=== PATIENT | male | born 1980 | race Caucasian/White ===

== ENCOUNTER → 2016-09-13 | Outpatient (CLI) | payer BC ==
--- NOTE | 2016-09-16 10:33 | CR ---
EXAM DATE: 09/13/16 PATIENT'S AGE: 36 Patient: DB VILLALOBOS Facility: [place], [place] Site . Site : 1980 Study: XRay Knee [id number]/10/2017 9:06:08 AM Ordering Physician: Keily Nguyễn Final Report: INDICATION: pain in right knee TECHNIQUE: Knee radiograph 1 view right COMPARISON: None FINDINGS: Bones: Alignment is normal. No acute fractures or aggressive bone lesions identified. Joint spaces: Unremarkable. No knee effusion is seen on the lateral exam. Soft tissues: Unremarkable. No radiopaque foreign bodies are seen. IMPRESSION: 1. No acute osseous injuries are noted but complete radiographic assessment will require at least another orthogonal view. Dictated by: Chalino Mandel MD @ 09/15/2016 01:15:06 (Electronic Signature) Report Signed by Proxy and Original Signed Document filed in the Medical Record. [email or web address]
== END ==
LOC: MW.CHORTHO 07:52
PROVIDERS: ATTEND Physician Assistant
DX: M25.561 Pain in right knee (principal)
CPT/HCPCS: 73560-26-RT; 73560-RT

== ENCOUNTER 2016-10-17 10:30 | Day surgery (SDC) | payer BC ==
[~2016-10-17 10:30] MED LIST: Acetaminophen/HYDROcodone 325-5 MG Tab PO PRN; Lactated Ringers 1,000 ML IV SCH; ceFAZolin 2 GM in Premix Bag 1 BAG IV SCH
[2016-10-17] MEDS ORDERED: Lidocaine 1% 50 ML MDV ONE (10:51)
--- NOTE | 2016-10-17 10:59 | PCM.PREANE ---
Preanesthetic Assessment - Anesthesia/Transfusion/Family Hx Anesthesia History: Prior Anesthesia Without Reaction Family History of Anesthesia Reaction: No Transfusion History: No Prior Transfusion(s) - Review of Systems General: No Symptoms Pulmonary: No Symptoms Cardiovascular: No Symptoms Gastrointestinal: No symptoms Neurological: No Symptoms Other: Reports: None - Physical Assessment NPO Status Date: 10/16/16 O2 Sat by Pulse Oximetry: 94 Respiratory Rate: 16 Vital Signs: Last Vital Signs Temp 36.5 C 10/17/16 10:49 Pulse 60 10/17/16 10:49 Resp 16 10/17/16 10:49 BP 127/70 10/17/16 10:49 Pulse Ox 94 L 10/17/16 10:49 Height: 1.78 m Weight: 99.79 kg ASA Class: 1 Mental Status: Alert & Oriented x3 Airway Class: Mallampati = 1 Dentition: Reports: Normal Dentition ROM/Head Extension: Full Lungs: Clear to auscultation, Normal respiratory effort Cardiovascular: Regular Rate, Regular Rhythm - Allergies Allergies/Adverse Reactions: Allergies Allergy/AdvReac Type Severity Reaction Status Date / Time No Known Allergies Allergy Verified 10/15/16 12:13 - Anesthesia Plan Pre-Op Medication Ordered: None - Acknowledgements Anesthesia Type Planned: General Anesthesia Pt an Appropriate Candidate for the Planned Anesthesia: Yes Alternatives and Risks of Anesthesia Discussed w Pt/Guardian: Yes Pt/Guardian Understands and Agrees with Anesthesia Plan: Yes Additional Comments: GA LMA PreAnesthesia Questionnaire Gastrointestinal History: Reports: None Neurological History: Reports: Concussion Endocrine/Metabolic History: Reports: Obesity/BMI 30+ - Past Surgical History Head Surgeries/Procedures: Reports: None GI Surgical History: Reports: Hernia, inguinal Other GI Surgeries/Procedures: inguinal hernia repair x2 - SUBSTANCE USE Smoking Status *Q: Former Smoker Tobacco Use Within Last Twelve Months: Smokeless Tobacco Recreational Drug Use History: No - HOME MEDS Home Medications: Home Meds Acetaminophen 2 tab PO ASDIRECTED PRN 10/15/16 [History] - CURRENT (IN HOUSE) MEDS Current Meds: Current Medications Hydrocodone Bitart/Acetaminophen ([place] 325-5 Mg) 1 - 2 tab PO Q4H PRN PRN Reason: Pain Lactated Ringer's (Ringers, Lactated) 1,000 mls @ 100 mls/hr IV ASDIRECTED LENI Last Admin: 10/17/16 10:51 Dose: 100 mls/hr Cefazolin Sodium/Dextrose 2 gm (/ Premix) 50 mls @ 100 mls/hr IV ONCALL LENI Discontinued Medications Lidocaine HCl (Xylocaine 1%) Confirm Administered Dose 50 ml .ROUTE .[facility] ONE Stop: 10/17/16 10:52
[2016-10-17] MEDS ORDERED: Ondansetron 4 MG/2 ML SDV ONE (11:16)
[2016-10-17] MEDS ORDERED: Propofol 200 MG/20 ML SDV ONE (11:16)
[2016-10-17] MEDS ORDERED: fentaNYL 250 MCG/5 ML SDV ONE (11:16)
[2016-10-17] MEDS ORDERED: Midazolam 1 MG/ML 2 ML SDV ONE (11:16)
[2016-10-17] MEDS ORDERED: Ketorolac 30 MG/ML SDV ONE (12:19)
--- NOTE | 2016-10-17 12:35 | PCM.OPNOTE ---
- General Post-Op/Procedure Note Date of Surgery/Procedure: 10/17/16 Operative Procedure(s): R knee arthroscopy with PMM Post-Op Diagnosis: R knee medial meniscus tear Anesthesia Technique: General LMA Primary Surgeon: Tigist Snyder Peanut Cleaner: Ihsan Garland in mLs: 5 Condition: Good Free Text/Narrative:: tt=17 min #[id number]
--- NOTE | 2016-10-17 13:14 | PCM.POSTAN ---
POST ANESTHESIA ASSESSMENT - MENTAL STATUS Mental Status: alert, oriented - RESPIRATORY Respiratory Status: respiratory rate WNL, airway patent - CARDIOVASCULAR CV Status: pulse rate WNL, blood pressure stable - GASTROINTESTINAL GI Status: no symptoms - POST OP HYDRATION Hydration Status: adequate & stable
--- NOTE | 2016-10-17 13:22 | PCM48HPAN ---
Post Anesthesia Note - EVALUATION WITHIN 48HRS OF ANESTHETIC Vital Signs in Normal Range: Yes Patient Participated in Evaluation: Yes Respiratory Function Stable: Yes Airway Patent: Yes Cardiovascular Function Stable: Yes Hydration Status Stable: Yes Pain Control Satisfactory: Yes Nausea and Vomiting Control Satisfactory: Yes Mental Status Recovered: Yes
[2016-10-17 14:27] VITALS: BP 108/73
--- NOTE | 2016-10-17 18:58 | OR ---
SURGEON: Tigist Snyder MD DATE OF PROCEDURE: 10/17/2016 PREOPERATIVE DIAGNOSIS: Right knee medial meniscus tear. POSTOPERATIVE DIAGNOSIS: Right knee medial meniscus tear. PROCEDURE: Right knee arthroscopy with partial medial meniscectomy. ASPHALT LAYER: Ihsan Garland PA-C. ANESTHESIA: General. ESTIMATED BLOOD LOSS: 5 mL. TOURNIQUET TIME: 17 minutes. COMPLICATIONS: None. DVT PROPHYLAXIS: Not indicated. IMPLANTS USED: None. BRIEF HISTORY: Mendel is a 36-year-old male, who has had complaint of progressive right knee pain. An MRI did show a tear of the medial meniscus. Due to his lack of response to conservative treatment, I did recommend surgical intervention. The risks and goals of the procedure were discussed with the patient and were documented preoperatively. He agreed to proceed. DESCRIPTION OF PROCEDURE: The patient was properly identified and brought to the operating room. He was transferred from the OR cart and placed on the operating table in supine position. General anesthesia was administered. After adequate anesthesia was obtained, a well-padded tourniquet was applied to the right lower extremity. The right lower extremity was then prepped in a standard fashion using ChloraPrep solution. It was then sterilely draped. A time-out was performed to ensure correct site and procedure. Preoperative antibiotics were given. The surgical site had been marked preoperatively. An Esmarch was used to exsanguinate the right lower extremity and the tourniquet was inflated to 250 mmHg. A lateral portal arthrotomy was established. Blunt trocar and cannula were introduced into the suprapatellar pouch. Camera, inflow, and outflow were assembled. No synovitis was noted. The patellofemoral joint was then visualized. The patella appeared to track centrally. There was an area of grade 2 chondromalacia along the central portion of the trochlear groove. I then extended down the lateral and medial gutters. No loose bodies were identified. I then entered the medial compartment. Immediately evident was a degenerative meniscus tear along the posterior horn. A medial portal arthrotomy was established and a blunt probe was inserted. The meniscus tear was probed and found to be unstable. Using a combination of biters and shaver, this was resected back to a stable remnant. There was a horizontal cleavage line between the superior and inferior portion of the meniscus. Both the edges were probed and found to be stable. I elected to leave the horizontal tear intact. The joint surfaces showed minor grade 1 chondromalacia only. I then entered the notch. Both the ACL and PCL were visualized and probed and found to be intact. I finally entered the lateral compartment. The lateral meniscus was probed and found to be stable. Grade 1 chondromalacia was noted along the lateral tibial plateau. No degenerative changes were noted along the lateral femoral condyle. I then re-entered the patellofemoral joint. The area of chondromalacia along the central portion of the trochlea was probed. This was found to be not full thickness. There were no loose flaps. Instruments were then removed from the knee. The portal sites were closed with 3-0 nylon. 1% lidocaine was injected along the portal tracts. Xeroform gauze was placed over the wound and a bulky dressing was applied. The tourniquet was then deflated. He was awakened from his anesthetic and transferred back to the operating room cart. He was brought to recovery room in stable condition. All needle and sponge counts were correct. RADHA / KATHY /[id number]
== END 2016-10-17 14:05 | disposition home or self-care (01) ==
LOC: MW.SDS 10:30
PROVIDERS: ATTEND Orthopaedic Surgery
PROC: 0SBC4ZZ Excision of Right Knee Joint, Percutaneous Endoscopic Approach (ICD-10-PCS; principal; 2016-10-17)
DX: M23.321 Other meniscus derangements, posterior horn of medial meniscus, right knee (principal); M94.261 Chondromalacia, right knee; E66.9 Obesity, unspecified; Z87.891 Personal history of nicotine dependence; Z98.890 Other specified postprocedural states; Z68.31 Body mass index [BMI] 31.0-31.9, adult
CPT/HCPCS: 29881; A9270; J1885; J2250; J2405; J3010; J7120; 01400; 88304; J2704

== ENCOUNTER 2021-04-26 07:07 | Observation (INO) | payer BC ==
[2021-04-26] MEDS ORDERED: Sodium Chloride 0.9% 10 ML Syringe FLUSH PRN (07:29)
[2021-04-26] MEDS ORDERED: Morphine 4 MG/ML Syringe IVPUSH ONE (07:29)
[2021-04-26] MEDS ORDERED: Sodium Chloride 0.9% 2.5 ML Syringe FLUSH PRN (07:29)
[2021-04-26] MEDS ORDERED: Ondansetron 4 MG/2 ML SDV IVPUSH ONE (07:29)
[2021-04-26] MEDS ORDERED: Sodium Chloride 0.9% 1,000 ML IV ONE (07:30)
--- NOTE | 2021-04-26 07:33 | EDM.PDOC ---
ED HPI GENERAL MEDICAL PROBLEM - General Chief Complaint: Abdominal Pain Stated Complaint: SHARP RIGHT SIDE ABDOMINAL PAIN Time Seen by Provider: 04/26/21 07:09 - History of Present Illness INITIAL COMMENTS - FREE TEXT/NARRATIVE: History of present illness: [] The patient was in his usual state of health had a sharp pain in his abdomen last night. It was in the right lower quadrant and hypogastrium. He was vague and not discretely located in any 1 point. This morning he woke up and has pain in the right lower quadrant that is severe and continues. Its worse with movement. He does not have nausea or vomiting now but he says the pain is bad and makes him feel like he is going to be nauseated. The patient has not vomited or had change in bowel or urine habits. Past medical history includes a hernia that is been done twice in the left groin including mesh implant. He says a hernia has recurred again. He also has a history of knee surgery but is otherwise in pretty good health. Last p.o. was before midnight last night. Review of systems: As per history of present illness and below otherwise all systems reviewed and negative. Past medical history: As per history of present illness and as reviewed below otherwise noncontributory. Surgical history: As per history of present illness and as reviewed below otherwise noncontributory. Social history: No reported history of drug or alcohol abuse. Family history: As per history of present illness and as reviewed below otherwise noncontributory. Physical exam: Constitutional - well developed, well-nourished and in no acute distress HEENT - normocephalic, no evidence of trauma - external nose and mouth normal - no mass in neck and no JVD - mucosae moist EYES - full EOM, PERRL, no icterus - no evidence of inflammation, injection, or drainage Respiratory - no respiratory distress, equal bilateral expansion, lungs clear to auscultation and no abnormal lung sounds Cardiovascular - Regular Rhythm with S1 and S2 appreciated and no murmur, gallop or rub. GI - abdomen soft without distension or organomegaly -exquisitely tender at McBurney's point. Guards this area diminished bowel sounds - no rebound Musculoskeletal no gross deformity of long bones or joints - no tenderness, swelling or edema Neurologic - Alert and oriented times four - CN II-XII grossly intact - motor sensory and coordination symmetrically normal Psychiatric - appropriate mood and affect with normal thought content Hematologic - No petechiae or purpura - mucosa appropriate color and sclera not pale - normal nail bed color and refill Integument - no rash or evidence of trauma - normal turgor Diagnostics: [] Therapeutics: [] Impression: [] Plan: [] Definitive disposition and diagnosis as appropriate pending reevaluation and review of above. RLQ Pain Score (Numeric/FACES): 6 - Related Data Allergies Allergy/AdvReac Type Severity Reaction Status Date / Time No Known Allergies Allergy Verified 04/26/21 07:18 Home Meds: Home Meds . [No Known Home Meds] 04/26/21 [History] Past Medical History HEENT History: Reports: None Cardiovascular History: Reports: None Respiratory History: Reports: None Gastrointestinal History: Reports: None Genitourinary History: Reports: None Musculoskeletal History: Reports: Other (See Below) Other Musculoskeletal History: L side meniscus tear Neurological History: Reports: Concussion Psychiatric History: Reports: None Endocrine/Metabolic History: Reports: Obesity/BMI 30+ Hematologic History: Reports: None Immunologic History: Reports: None Oncologic (Cancer) History: Reports: None Dermatologic History: Reports: None - Infectious Disease History Infectious Disease History: Reports: Chicken Pox - Past Surgical History Head Surgeries/Procedures: Reports: None GI Surgical History: Reports: Hernia, Inguinal Other GI Surgeries/Procedures: inguinal hernia repair x2 Musculoskeletal Surgical History: Reports: Arthroscopic Knee Social & Family History - Family History Family Medical History: No Pertinent Family History - Tobacco Use Tobacco Use Status *Q: Current Every Day Tobacco User Years of Tobacco use: 23 Packs/Tins Daily: 1 - Caffeine Use Caffeine Use: Reports: Energy Drinks - Recreational Drug Use Recreational Drug Use: No ED ROS GENERAL - Review of Systems Review Of Systems: Comprehensive ROS is negative, except as noted in HPI. ED EXAM, GENERAL - Physical Exam Exam: See Below Free Text/Narrative:: My physical exam is in the HPI Course - Vital Signs Text/Narrative:: Differential diagnosis includes appendicitis, diverticulitis, mesenteric adenitis, ureteral colic. Last Recorded V/S: Last Vital Signs Temp 36.0 C L 04/26/21 07:19 Pulse 66 04/26/21 09:21 Resp 18 04/26/21 07:19 BP 114/73 04/26/21 09:21 Pulse Ox 98 04/26/21 09:21 - Orders/Labs/Meds Orders: Active Orders 24 hr Category Date Time Status Sodium Chloride 0.9% [Normal Saline] 1,000 ml Med 04/26/21 07:30 Active IV .Bolus Sodium Chloride 0.9% [Saline Flush] Med 04/26/21 07:29 Active 10 ml FLUSH ASDIRECTED PRN Sodium Chloride 0.9% [Saline Flush] Med 04/26/21 07:29 Active 2.5 ml FLUSH ASDIRECTED PRN Saline Lock Insert [OM.PC] Stat Oth 04/26/21 07:29 Ordered Medication Orders Sodium Chloride (Normal Saline) 1,000 mls @ 500 mls/hr IV .Bolus ONE Stop: 04/26/21 09:29 Last Admin: 04/26/21 07:47 Dose: 500 mls/hr Documented by: CARLOS Sodium Chloride (Sodium Chloride 0.9% 10 Ml Syringe) 10 ml FLUSH ASDIRECTED PRN PRN Reason: Keep Vein Open Last Admin: 04/26/21 07:46 Dose: 10 ml Documented by: CARLOS Sodium Chloride (Sodium Chloride 0.9% 2.5 Ml Syringe) 2.5 ml FLUSH ASDIRECTED PRN PRN Reason: Keep Vein Open Last Admin: 04/26/21 07:46 Dose: 2.5 ml Documented by: CARLOS Labs: Laboratory Tests 04/26/21 04/26/21 04/26/21 Range/Units 07:35 07:35 07:40 WBC 10.11 (4.0-11.0) K/uL RBC 5.26 (4.50-5.90) M/uL Hgb 16.1 (13.0-17.0) g/dL Hct 46.5 (38.0-50.0) % MCV 88.4 (80.0-98.0) fL MCH 30.6 (27.0-32.0) pg MCHC 34.6 (31.0-37.0) g/dL RDW Std Deviation 42.4 (28.0-62.0) fl RDW Coeff of Sunday 13 (11.0-15.0) % Plt Count 257 (150-400) K/uL MPV 10.40 (7.40-12.00) fL Neut % (Auto) 67.9 (48.0-80.0) % Lymph % (Auto) 19.1 (16.0-40.0) % [place] % (Auto) 10.2 (0.0-15.0) % Eos % (Auto) 2.7 (0.0-7.0) % Baso % (Auto) 0.1 (0.0-1.5) % Neut # (Auto) 6.9 H (1.4-5.7) K/uL Lymph # (Auto) 1.9 (0.6-2.4) K/uL [place] # (Auto) 1.0 H (0.0-0.8) K/uL Eos # (Auto) 0.3 (0.0-0.7) K/uL Baso # (Auto) 0.0 (0.0-0.1) K/uL Nucleated RBC % 0.0 /100WBC Nucleated RBCs # 0 K/uL Sodium 141 (136-148) mmol/L Potassium 4.6 (3.5-5.1) mmol/L Chloride 103 (98-107) mmol/L Carbon Dioxide 28.0 (21.0-32.0) mmol/L BUN 20 H (7.0-18.0) mg/dL Creatinine 1.1 (0.8-1.3) mg/dL Est Cr Clr Drug Dosing 91.25 mL/min Estimated GFR (MDRD) > 60.0 ml/min Glucose 107 H (74-106) mg/dL Calcium 8.9 (8.5-10.1) mg/dL Total Bilirubin 1.0 (0.2-1.0) mg/dL AST 16 (15-37) IU/L ALT 33 (14-63) IU/L Alkaline Phosphatase 73 (46-116) U/L Total Protein 7.1 (6.4-8.2) g/dL Albumin 3.9 (3.4-5.0) g/dL Globulin 3.2 (2.6-4.0) g/dL Albumin/Globulin Ratio 1.2 (0.9-1.6) Lipase 169 (73-393) U/L Urine Color YELLOW Urine Appearance CLEAR Urine pH 6.0 (5.0-8.0) Ur Specific [place] >= 1.030 (1.001-1.035) Urine Protein NEGATIVE (NEGATIVE) mg/dL Urine Glucose (UA) NEGATIVE (NEGATIVE) mg/dL Urine Ketones NEGATIVE (NEGATIVE) mg/dL Urine Occult Blood TRACE-INTACT H (NEGATIVE) Urine Nitrite NEGATIVE (NEGATIVE) Urine Bilirubin NEGATIVE (NEGATIVE) Urine Urobilinogen 0.2 (<2.0) EU/dL Ur Leukocyte Esterase NEGATIVE (NEGATIVE) Urine RBC 0-2 (0-2/HPF) Urine WBC 0-1 (0-5/HPF) Ur Epithelial Cells RARE (NONE-FEW) Urine Bacteria FEW (NEGATIVE) Urine Mucus LIGHT (NONE-MOD) Meds: Medications Generic Name Dose Route Start Last Admin Trade Name [place] PRN Reason Stop Dose Admin Sodium Chloride 1,000 mls @ 500 mls/hr 04/26/21 07:30 04/26/21 07:47 Normal Saline IV 04/26/21 09:29 500 mls/hr .Bolus ONE Administration Sodium Chloride 10 ml 04/26/21 07:29 04/26/21 07:46 Sodium Chloride 0.9% 10 Ml Syringe FLUSH 10 ml ASDIRECTED PRN Administration Keep Vein Open Sodium Chloride 2.5 ml 04/26/21 07:29 04/26/21 07:46 Sodium Chloride 0.9% 2.5 Ml Syringe FLUSH 2.5 ml ASDIRECTED PRN Administration Keep Vein Open Discontinued Medications Generic Name Dose Route Start Last Admin Trade Name Long PRN Reason Stop Dose Admin Morphine Sulfate 4 mg 04/26/21 08:00 04/26/21 07:55 Morphine 2 Mg/Ml Syringe IVPUSH 04/26/21 08:01 4 mg ONETIME ONE Administration Ondansetron HCl 4 mg 04/26/21 07:29 04/26/21 07:47 Ondansetron 4 Mg/2 Ml Sdv IVPUSH 04/26/21 07:30 4 mg ONETIME ONE Administration - Re-Assessments/Exams Free Text/Narrative Re-Assessment/Exam: 04/26/21 09:[address] is acute appendicitis. Discussed with Dr. Fontenot. He will be on. Mookn recommended Departure - Departure Time of Disposition: 10:15 Disposition: Refer to Observation Condition: Good Clinical Impression: Acute appendicitis - Discharge Information Referrals: PCP,None [Primary Care Provider] - Forms: ED Department Discharge Sepsis Event Note (ED) - Evaluation Sepsis Screening Result: No Definite Risk - Focused Exam Vital Signs: Vital Signs Temp Pulse Resp BP Pulse Ox 04/26/21 09:21 66 114/73 98 04/26/21 08:22 76 116/79 94 L 04/26/21 08:01 88 124/87 94 L 04/26/21 07:19 36.0 C L 76 18 137/87 97 - My Orders Last 24 Hours: My Active Orders 04/26/21 07:29 Sodium Chloride 0.9% [Saline Flush] 10 ml FLUSH ASDIRECTED PRN Sodium Chloride 0.9% [Saline Flush] 2.5 ml FLUSH ASDIRECTED PRN Saline Lock Insert [OM.PC] Stat 04/26/21 07:30 Sodium Chloride 0.9% [Normal Saline] 1,000 ml IV .Bolus - Assessment/Plan Last 24 Hours: My Active Orders 04/26/21 07:29 Sodium Chloride 0.9% [Saline Flush] 10 ml FLUSH ASDIRECTED PRN Sodium Chloride 0.9% [Saline Flush] 2.5 ml FLUSH ASDIRECTED PRN Saline Lock Insert [OM.PC] Stat 04/26/21 07:30 Sodium Chloride 0.9% [Normal Saline] 1,000 ml IV .Bolus
[2021-04-26] MEDS ORDERED: Morphine 2 MG/ML SYRINGE IVPUSH ONE (08:00)
[2021-04-26 08:07] LABS: BLOOD UREA NITROGEN,BUN 20 mg/dL (7.0-18.0); CHLORIDE,CL 103 mmol/L (98-107); GLUCOSE RANDOM 107 mg/dL (74-106); LIPASE 169 U/L (73-393); POTASSIUM,K 4.6 mmol/L (3.5-5.1); SODIUM,NA 141 mmol/L (136-148)
--- NOTE | 2021-04-26 09:23 | CT ---
INDICATION: Right lower quadrant pain. TECHNIQUE: Volumetric helical scanning of the abdomen and pelvis was performed with 100 cc of Isovue 370 contrast material IV. Coronal and sagittal reconstructions were obtained. COMPARISON: None. FINDINGS: Acute appendicitis is demonstrated. The appendix measures 14 mm in diameter, and there is stranding in the periappendiceal fat. Several appendicoliths are noted. No abscess, free fluid or free air is apparent. Several borderline enlarged mesenteric lymph nodes in the right lower quadrant are noted. No retroperitoneal or pelvic adenopathy is evident. The bowel is otherwise unremarkable except for sigmoid and left colonic diverticulosis. The liver, bile ducts, spleen, adrenal glands, kidneys and pancreas are unremarkable. The prostate is borderline enlarged. The lung bases are essentially clear, and heart size is normal. IMPRESSION: 1. Acute appendicitis without convincing evidence of perforation. 2. Several borderline right lower quadrant mesenteric lymph nodes. 3. Sigmoid and left colonic diverticulosis but no evidence of diverticulitis. 4. Borderline prostate enlargement. Please note that all CT scans at this facility use dose modulation, iterative reconstruction, and/or weight-based dosing when appropriate to reduce radiation dose to as low as reasonably achievable. Dictated by Misael London MD @ 04/26/2021 9:21:30 AM (Electronically Signed)
[2021-04-26] MEDS ORDERED: Piperacillin/Tazobactam 4.5 GM in Sodium Chloride 0.9% 100 ML IV ONE (09:28)
[2021-04-26] MEDS ORDERED: Lactated Ringers 1,000 ML IV SCH ×2 (10:00→12:30)
--- NOTE | 2021-04-26 10:07 | PCM.CONS ---
H&P History of Present Illness - General Date of Service: 04/26/21 Admit Problem/Dx: Admission Diagnosis/Problem Admission Diagnosis/Problem Acute appendicitis Source of Information: Patient History Limitations: Reports: No Limitations - History of Present Illness Initial Comments - Free Text/Narative: 40 y/o gentleman who presented to the ER this morning c/o right lower quadrant pain that began about 14 hours ago. Denies fever/chills/nausea/vomiting/loss of appetite. Hasn't eaten since last night. No prior history of similar pain. Thought he had a kidney stone. CT shows appendicitis with periappendiceal fat stranding, fecaliths but no perforation. Symptom Onset Date: 04/25/21 Duration of Symptoms: Reports: Hour(s): Location: Reports: Abdomen Quality: Reports: Ache, Pressure Severity: Moderate Improves with: Reports: Rest Worsens with: Reports: Movement Associated Symptoms: Denies: Fever/Chills, Loss of Appetite, Nausea/Vomiting RLQ Pain Score (Numeric/FACES): 6 - Related Data Allergies/Adverse Reactions: Allergies Allergy/AdvReac Type Severity Reaction Status Date / Time No Known Allergies Allergy Verified 04/26/21 07:18 Home Medications: Home Meds . [No Known Home Meds] 04/26/21 [History] Past Medical History HEENT History: Reports: None Cardiovascular History: Reports: None Respiratory History: Reports: None Gastrointestinal History: Reports: None Genitourinary History: Reports: None Musculoskeletal History: Reports: Other (See Below) Other Musculoskeletal History: L side meniscus tear Neurological History: Reports: Concussion Psychiatric History: Reports: None Endocrine/Metabolic History: Reports: Obesity/BMI 30+ Hematologic History: Reports: None Immunologic History: Reports: None Oncologic (Cancer) History: Reports: None Dermatologic History: Reports: None - Infectious Disease History Infectious Disease History: Reports: Chicken Pox - Past Surgical History Head Surgeries/Procedures: Reports: None GI Surgical History: Reports: Hernia, Inguinal (bilateral) Other GI Surgeries/Procedures: inguinal hernia repair x2 Musculoskeletal Surgical History: Reports: Arthroscopic Knee Social & Family History - Family History Family Medical History: No Pertinent Family History - Tobacco Use Tobacco Use Status *Q: Current Every Day Tobacco User Tobacco Use Within Last Twelve Months: Smokeless Tobacco, Vaping Years of Tobacco use: 23 Packs/Tins Daily: 1 - Caffeine Use Caffeine Use: Reports: Energy Drinks - Recreational Drug Use Recreational Drug Use: No H&P Review of Systems - Review of Systems: Review Of Systems: See Below General: Denies: Fever, Chills, Malaise, Weakness, Fatigue, Decreased Appetite HEENT: Reports: No Symptoms Pulmonary: Denies: Shortness of Breath, Wheezing Cardiovascular: Denies: Chest Pain, Palpitations Gastrointestinal: Reports: Abdominal Pain, Flatus. Denies: Anorexia, Bloody Stool, Constipation, Diarrhea, Decreased Appetite, Distension, Hematochezia, Melena, Nausea, Vomiting Genitourinary: Reports: No Symptoms Musculoskeletal: Reports: No Symptoms Skin: Denies: Cyanosis, Jaundice, Mottled, Pallor Psychiatric: Denies: Confusion, Depression, Anxiety Neurological: Denies: Confusion, Headache Hematologic/Lymphatic: Reports: No Symptoms Immunologic: Reports: No Symptoms Exam - Exam Exam: See Below - Vital Signs Vital Signs: Last Vital Signs Temp 96.8 F L 04/26/21 07:19 Pulse 66 04/26/21 09:21 Resp 18 04/26/21 07:19 BP 114/73 04/26/21 09:21 Pulse Ox 98 04/26/21 09:21 Weight: 230 lb - Exam Quality Assessment: No: Supplemental Oxygen, Central Line/PICC General: Alert, Oriented, Cooperative, Mild Distress HEENT: Conjunctiva Clear, Nares Patent, Pupils Equal, Pupils Reactive. No: Scleral Icterus Neck: Supple, Trachea Midline Lungs: Clear to Auscultation, Normal Respiratory Effort Cardiovascular: Regular Rate, Regular Rhythm. No: Tachycardia, Systolic Murmur, Diastolic Murmur GI/Abdominal Exam: Soft, No Distention, Guarding, Rebound, Tender, Abnormal Bowel Sounds (hypoactive). No: Rigid (Male) Exam: Deferred Rectal (Males) Exam: Deferred Back Exam: Normal Inspection Extremities: Normal Inspection, Normal Range of Motion, Non-Tender Peripheral Pulses: 4+: Posterior Tibial (L), Posterior Tibial (R), Dorsalis Pedis (L), Dorsalis Pedis (R) Skin: Warm, Dry, Intact Neurological: Cranial Nerves Intact Neuro Extensive - Mental Status: Alert, Oriented x3, Normal Mood/Affect, Normal Cognition Psychiatric: Alert, Normal Affect, Normal Mood - Patient Data Lab Results Last 24 hrs: Laboratory Results - last 24 hr 04/26/21 04/26/21 04/26/21 Range/Units 07:35 07:35 07:40 WBC 10.11 (4.0-11.0) K/uL RBC 5.26 (4.50-5.90) M/uL Hgb 16.1 (13.0-17.0) g/dL Hct 46.5 (38.0-50.0) % MCV 88.4 (80.0-98.0) fL MCH 30.6 (27.0-32.0) pg MCHC 34.6 (31.0-37.0) g/dL RDW Std Deviation 42.4 (28.0-62.0) fl RDW Coeff of Sunday 13 (11.0-15.0) % Plt Count 257 (150-400) K/uL MPV 10.40 (7.40-12.00) fL Neut % (Auto) 67.9 (48.0-80.0) % Lymph % (Auto) 19.1 (16.0-40.0) % [place] % (Auto) 10.2 (0.0-15.0) % Eos % (Auto) 2.7 (0.0-7.0) % Baso % (Auto) 0.1 (0.0-1.5) % Neut # (Auto) 6.9 H (1.4-5.7) K/uL Lymph # (Auto) 1.9 (0.6-2.4) K/uL [place] # (Auto) 1.0 H (0.0-0.8) K/uL Eos # (Auto) 0.3 (0.0-0.7) K/uL Baso # (Auto) 0.0 (0.0-0.1) K/uL Nucleated RBC % 0.0 /100WBC Nucleated RBCs # 0 K/uL Sodium 141 (136-148) mmol/L Potassium 4.6 (3.5-5.1) mmol/L Chloride 103 (98-107) mmol/L Carbon Dioxide 28.0 (21.0-32.0) mmol/L BUN 20 H (7.0-18.0) mg/dL Creatinine 1.1 (0.8-1.3) mg/dL Est Cr Clr Drug Dosing 91.25 mL/min Estimated GFR (MDRD) > 60.0 ml/min Glucose 107 H (74-106) mg/dL Calcium 8.9 (8.5-10.1) mg/dL Total Bilirubin 1.0 (0.2-1.0) mg/dL AST 16 (15-37) IU/L ALT 33 (14-63) IU/L Alkaline Phosphatase 73 (46-116) U/L Total Protein 7.1 (6.4-8.2) g/dL Albumin 3.9 (3.4-5.0) g/dL Globulin 3.2 (2.6-4.0) g/dL Albumin/Globulin Ratio 1.2 (0.9-1.6) Lipase 169 (73-393) U/L Urine Color YELLOW Urine Appearance CLEAR Urine pH 6.0 (5.0-8.0) Ur Specific [place] >= 1.030 (1.001-1.035) Urine Protein NEGATIVE (NEGATIVE) mg/dL Urine Glucose (UA) NEGATIVE (NEGATIVE) mg/dL Urine Ketones NEGATIVE (NEGATIVE) mg/dL Urine Occult Blood TRACE-INTACT H (NEGATIVE) Urine Nitrite NEGATIVE (NEGATIVE) Urine Bilirubin NEGATIVE (NEGATIVE) Urine Urobilinogen 0.2 (<2.0) EU/dL Ur Leukocyte Esterase NEGATIVE (NEGATIVE) Urine RBC 0-2 (0-2/HPF) Urine WBC 0-1 (0-5/HPF) Ur Epithelial Cells RARE (NONE-FEW) Urine Bacteria FEW (NEGATIVE) Urine Mucus LIGHT (NONE-MOD) Result Diagrams: 04/26/21 07:35 04/26/21 07:35 Imaging Impressions Last 24 hrs: CT scan and report have personally been reviewed. I agree with the diagnosis of acute appendicitis with fecaliths and periappendiceal fat stranding. I do not see any evidence of perforation. Sepsis Event Note - Evaluation Sepsis Screening Result: No Definite Risk - Focused Exam Vital Signs: Vital Signs Temp Pulse Resp BP Pulse Ox 04/26/21 09:21 66 114/73 98 04/26/21 08:22 76 116/79 94 L 04/26/21 08:01 88 124/87 94 L 04/26/21 07:19 96.8 F L 76 18 137/87 97 Consult PN Assessment/Plan Procedures: Procedures KNEE ARTHROSCOPY/SURGERY (10/17/16) MRI JNT OF LWR EXTRE W/O DYE (07/09/16) SARS-COV-2 COVID-19 AMP PRB (02/14/21) X-RAY EXAM OF KNEE 1 OR 2 (09/13/16) (1) Acute appendicitis SNOMED Code(s): 57137897 Code(s): K35.80 - UNSPECIFIED ACUTE APPENDICITIS Priority: High Current Visit: Yes Qualifiers: Acute appendicitis type: with localized peritonitis Appendicitis gangrene presence: unspecified whether gangrene present Appendicitis perforation presence: unspecified whether perforation present Appendicitis abscess presence: unspecified whether abscess present Qualified Code(s): K35.30 - Acute appendicitis with localized peritonitis, without perforation or gangrene Problem List Initiated/Reviewed/Updated: Yes My Orders Last 24 Hours: My Active Orders 04/26/21 Breakfast Nothing Per Oral Diet [DIET] 04/26/21 10:00 Antiembolic Devices [RC] PER UNIT ROUTINE Insert Urinary Catheter [OM.PC] Timed Oxygen Therapy [RC] ASDIRECTED RT Incentive Spirometry [RC] Q1HWA Skin Preparation [RC] .PREOP Urinary Catheter Assessment [RC] ASDIRECTED Urinary Catheter Assessment [RC] ASDIRECTED Urinary Catheter Assessment [RC] ASDIRECTED Vital Signs [RC] PER UNIT ROUTINE Lactated Ringers @ 125 MLS/HR(1000ml) Lactated Ringers [Ringers, Lactated] 1,000 ml IV ASDIRECTED Antiembolic Hose [OM.PC] Routine Resuscitation Status Routine Plan: Laparoscopic appendectomy, possible open appendectomy. Both operative procedures, along with the risks, including, but not limited to, bleeding, infection, pneumonia, deep venous thrombosis, pulmonary emboli, myocardial infarction, and adjacent organ injury have been reviewed with the patient who voices understanding, offers no questions and agrees to proceed.
[2021-04-26] MEDS ORDERED: fentaNYL 250 MCG/5 ML SDV ONE (10:23)
[2021-04-26] MEDS ORDERED: HYDROmorphone 1 MG/ML Syringe IVPUSH PRN (10:23)
[2021-04-26] MEDS ORDERED: Ondansetron 4 MG/2 ML SDV IVPUSH PRN ×2 (10:23→12:24)
[2021-04-26] MEDS ORDERED: Metoclopramide 10 MG/2 ML SDV IVPUSH PRN (10:23)
[2021-04-26] MEDS ORDERED: Albuterol 0.083% 2.5 MG/3 ML Neb Soln NEB PRN (10:23)
[2021-04-26] MEDS ORDERED: Propofol 200 MG/20 ML SDV ONE (10:23)
[2021-04-26] MEDS ORDERED: Midazolam 1 MG/ML 2 ML SDV ONE (10:23)
[2021-04-26] MEDS ORDERED: Morphine 2 MG/ML SYRINGE IVPUSH PRN ×2 (10:23→12:35)
[2021-04-26] MEDS ORDERED: Naloxone 0.4 MG/ML SDV IVPUSH PRN (10:23)
[2021-04-26] MEDS ORDERED: fentaNYL 100 MCG/2 ML SDV IVPUSH PRN (10:23)
--- NOTE | 2021-04-26 10:25 | PCM.PREANE ---
Preanesthetic Assessment - Anesthesia/Transfusion/Family Hx Anesthesia History: Prior Anesthesia Without Reaction Transfusion History: No Prior Transfusion(s) - Review of Systems General: No Symptoms Pulmonary: No Symptoms Cardiovascular: No Symptoms Gastrointestinal: No Symptoms Neurological: No Symptoms Other: Reports: None - Physical Assessment NPO Status Date: 04/26/21 NPO Status Time: 00:00 Vital Signs: Last Vital Signs Temp 96.8 F L 04/26/21 07:19 Pulse 66 04/26/21 09:21 Resp 18 04/26/21 07:19 BP 114/73 04/26/21 09:21 Pulse Ox 98 04/26/21 09:21 Height: 5 ft 10 in Weight: 230 lb ASA Class: 2E Mental Status: Alert & Oriented x3 Airway Class: Mallampati = 2 Dentition: Reports: Normal Dentition ROM/Head Extension: Full Lungs: Clear to Auscultation, Normal Respiratory Effort Cardiovascular: Regular Rate, Regular Rhythm - Lab Values: Laboratory Last Values WBC 10.11 K/uL (4.0-11.0) 04/26/21 07:35 RBC 5.26 M/uL (4.50-5.90) 04/26/21 07:35 Hgb 16.1 g/dL (13.0-17.0) 04/26/21 07:35 Hct 46.5 % (38.0-50.0) 04/26/21 07:35 MCV 88.4 fL (80.0-98.0) 04/26/21 07:35 MCH 30.6 pg (27.0-32.0) 04/26/21 07:35 MCHC 34.6 g/dL (31.0-37.0) 04/26/21 07:35 RDW Std Deviation 42.4 fl (28.0-62.0) 04/26/21 07:35 RDW Coeff of Sunday 13 % (11.0-15.0) 04/26/21 07:35 Plt Count 257 K/uL (150-400) 04/26/21 07:35 MPV 10.40 fL (7.40-12.00) 04/26/21 07:35 Neut % (Auto) 67.9 % (48.0-80.0) 04/26/21 07:35 Lymph % (Auto) 19.1 % (16.0-40.0) 04/26/21 07:35 [place] % (Auto) 10.2 % (0.0-15.0) 04/26/21 07:35 Eos % (Auto) 2.7 % (0.0-7.0) 04/26/21 07:35 Baso % (Auto) 0.1 % (0.0-1.5) 04/26/21 07:35 Neut # (Auto) 6.9 K/uL (1.4-5.7) H 04/26/21 07:35 Lymph # (Auto) 1.9 K/uL (0.6-2.4) 04/26/21 07:35 [place] # (Auto) 1.0 K/uL (0.0-0.8) H 04/26/21 07:35 Eos # (Auto) 0.3 K/uL (0.0-0.7) 04/26/21 07:35 Baso # (Auto) 0.0 K/uL (0.0-0.1) 04/26/21 07:35 Nucleated RBC % 0.0 /100WBC 04/26/21 07:35 Nucleated RBCs # 0 K/uL 04/26/21 07:35 Sodium 141 mmol/L (136-148) 04/26/21 07:35 Potassium 4.6 mmol/L (3.5-5.1) 04/26/21 07:35 Chloride 103 mmol/L (98-107) 04/26/21 07:35 Carbon Dioxide 28.0 mmol/L (21.0-32.0) 04/26/21 07:35 BUN 20 mg/dL (7.0-18.0) H 04/26/21 07:35 Creatinine 1.1 mg/dL (0.8-1.3) 04/26/21 07:35 Est Cr Clr Drug Dosing 91.25 mL/min 04/26/21 07:35 Estimated GFR (MDRD) > 60.0 ml/min 04/26/21 07:35 Glucose 107 mg/dL (74-106) H 04/26/21 07:35 Calcium 8.9 mg/dL (8.5-10.1) 04/26/21 07:35 Total Bilirubin 1.0 mg/dL (0.2-1.0) 04/26/21 07:35 AST 16 IU/L (15-37) 04/26/21 07:35 ALT 33 IU/L (14-63) 04/26/21 07:35 Alkaline Phosphatase 73 U/L (46-116) 04/26/21 07:35 Total Protein 7.1 g/dL (6.4-8.2) 04/26/21 07:35 Albumin 3.9 g/dL (3.4-5.0) 04/26/21 07:35 Globulin 3.2 g/dL (2.6-4.0) 04/26/21 07:35 Albumin/Globulin Ratio 1.2 (0.9-1.6) 04/26/21 07:35 Lipase 169 U/L (73-393) 04/26/21 07:35 Urine Color YELLOW 04/26/21 07:40 Urine Appearance CLEAR 04/26/21 07:40 Urine pH 6.0 (5.0-8.0) 04/26/21 07:40 Ur Specific [place] >= 1.030 (1.001-1.035) 04/26/21 07:40 Urine Protein NEGATIVE mg/dL (NEGATIVE) 04/26/21 07:40 Urine Glucose (UA) NEGATIVE mg/dL (NEGATIVE) 04/26/21 07:40 Urine Ketones NEGATIVE mg/dL (NEGATIVE) 04/26/21 07:40 Urine Occult Blood TRACE-INTACT (NEGATIVE) H 04/26/21 07:40 Urine Nitrite NEGATIVE (NEGATIVE) 04/26/21 07:40 Urine Bilirubin NEGATIVE (NEGATIVE) 04/26/21 07:40 Urine Urobilinogen 0.2 EU/dL (<2.0) 04/26/21 07:40 Ur Leukocyte Esterase NEGATIVE (NEGATIVE) 04/26/21 07:40 Urine RBC 0-2 (0-2/HPF) 04/26/21 07:40 Urine WBC 0-1 (0-5/HPF) 04/26/21 07:40 Ur Epithelial Cells RARE (NONE-FEW) 04/26/21 07:40 Urine Bacteria FEW (NEGATIVE) 04/26/21 07:40 Urine Mucus LIGHT (NONE-MOD) 04/26/21 07:40 - Allergies Allergies/Adverse Reactions: Allergies Allergy/AdvReac Type Severity Reaction Status Date / Time No Known Allergies Allergy Verified 04/26/21 07:18 - Acknowledgements Anesthesia Type Planned: General Anesthesia Pt an Appropriate Candidate for the Planned Anesthesia: Yes Alternatives and Risks of Anesthesia Discussed w Pt/Guardian: Yes Pt/Guardian Understands and Agrees with Anesthesia Plan: Yes PreAnesthesia Questionnaire HEENT History: Reports: None Cardiovascular History: Reports: None Respiratory History: Reports: None Gastrointestinal History: Reports: None Genitourinary History: Reports: None Musculoskeletal History: Reports: Other (See Below) Other Musculoskeletal History: L side meniscus tear Neurological History: Reports: Concussion Psychiatric History: Reports: None Endocrine/Metabolic History: Reports: Obesity/BMI 30+ Hematologic History: Reports: None Immunologic History: Reports: None Oncologic (Cancer) History: Reports: None Dermatologic History: Reports: None - Infectious Disease History Infectious Disease History: Reports: Chicken Pox - Past Surgical History Head Surgeries/Procedures: Reports: None GI Surgical History: Reports: Hernia, Inguinal (bilateral) Other GI Surgeries/Procedures: inguinal hernia repair x2 Musculoskeletal Surgical History: Reports: Arthroscopic Knee - SUBSTANCE USE Tobacco Use Status *Q: Current Every Day Tobacco User Tobacco Use Within Last Twelve Months: Smokeless Tobacco, Vaping Recreational Drug Use History: No - HOME MEDS Home Medications: Home Meds . [No Known Home Meds] 04/26/21 [History] - CURRENT (IN HOUSE) MEDS Current Meds: Current Medications Piperacillin Sod/Tazobactam (Sod 4.5 gm/ Sodium Chloride) 100 mls @ 100 mls/hr IV ONETIME ONE Stop: 04/26/21 10:27 Last Admin: 04/26/21 09:48 Dose: 100 mls/hr Documented by: Lactated Ringer's (Ringers, Lactated) 1,000 mls @ 125 mls/hr IV ASDIRECTED LENI Sodium Chloride (Sodium Chloride 0.9% 10 Ml Syringe) 10 ml FLUSH ASDIRECTED PRN PRN Reason: Keep Vein Open Last Admin: 04/26/21 07:46 Dose: 10 ml Documented by: Sodium Chloride (Sodium Chloride 0.9% 2.5 Ml Syringe) 2.5 ml FLUSH ASDIRECTED PRN PRN Reason: Keep Vein Open Last Admin: 04/26/21 07:46 Dose: 2.5 ml Documented by: Discontinued Medications Sodium Chloride (Normal Saline) 1,000 mls @ 500 mls/hr IV .Bolus ONE Stop: 04/26/21 09:29 Last Admin: 04/26/21 07:47 Dose: 500 mls/hr Documented by: Morphine Sulfate (Morphine 2 Mg/Ml Syringe) 4 mg IVPUSH ONETIME ONE Stop: 04/26/21 08:01 Last Admin: 04/26/21 07:55 Dose: 4 mg Documented by: Ondansetron HCl (Ondansetron 4 Mg/2 Ml Sdv) 4 mg IVPUSH ONETIME ONE Stop: 04/26/21 07:30 Last Admin: 04/26/21 07:47 Dose: 4 mg Documented by:
[2021-04-26] MEDS ORDERED: Dexamethasone 4 MG/ML 5 ML MDV ONE (10:28)
[2021-04-26] MEDS ORDERED: Bupivacaine 0.5% 10 ML SDV ONE (10:29)
[2021-04-26] MEDS ORDERED: Rocuronium Bromide 50 MG/5 ML Syringe ONE (10:29)
[2021-04-26] MEDS ORDERED: Sugammadex Sodium 200 MG/2 ML VIAL ONE (10:29)
[2021-04-26] MEDS ORDERED: ceFAZolin 1 GM Vial ONE (10:29)
[2021-04-26] MEDS ORDERED: Ketorolac 30 MG/ML SDV ONE (11:46)
[2021-04-26] MEDS ORDERED: Acetaminophen 325 MG Tab PO PRN (12:24)
[2021-04-26] MEDS ORDERED: Acetaminophen/HYDROcodone 325-5 MG Tab PO PRN (12:24)
--- NOTE | 2021-04-26 12:33 | PCM.OPNOTE ---
- General Post-Op/Procedure Note Date of Surgery/Procedure: 04/26/21 Operative Procedure(s): Laparoscopic appendectomy Pre Op Diagnosis: Acute abdomen Post-Op Diagnosis: Acute supparative nonruptured appendicitis Anesthesia Technique: General ET Tube (ASA IIE) Primary Surgeon: Remberto Fontenot Vacuum Tester Cans: Willie Truong Fluid Replacement, Intraop: 800 Output, Urine Amount: 800 EBL in mLs: 20 Condition: Stable Free Text/Narrative:: DICTATION [id number] [facility] [id number]
--- NOTE | 2021-04-26 12:35 | PCM.POSTAN ---
POST ANESTHESIA ASSESSMENT - MENTAL STATUS Mental Status: Alert, Oriented - VITAL SIGNS Vital Signs: Last Vital Signs Temp 36.0 C L 04/26/21 07:19 Pulse 66 04/26/21 09:21 Resp 18 04/26/21 07:19 BP 114/73 04/26/21 09:21 Pulse Ox 98 04/26/21 09:21 - RESPIRATORY Respiratory Status: Respiratory Rate WNL, Airway Patent, O2 Saturation Stable - CARDIOVASCULAR CV Status: Pulse Rate WNL, Blood Pressure Stable - GASTROINTESTINAL GI Status: No Symptoms - POST OP HYDRATION Hydration Status: Adequate & Stable
--- NOTE | 2021-04-26 12:36 | PCM48HPAN ---
Post Anesthesia Note - EVALUATION WITHIN 48HRS OF ANESTHETIC Vital Signs in Normal Range: Yes Patient Participated in Evaluation: Yes Respiratory Function Stable: Yes Airway Patent: Yes Cardiovascular Function Stable: Yes Hydration Status Stable: Yes Pain Control Satisfactory: Yes Nausea and Vomiting Control Satisfactory: Yes Mental Status Recovered: Yes Vital Signs: Last Vital Signs Temp 36.0 C L 04/26/21 07:19 Pulse 66 04/26/21 09:21 Resp 18 04/26/21 07:19 BP 114/73 04/26/21 09:21 Pulse Ox 98 04/26/21 09:21
--- NOTE | 2021-04-26 14:35 | OR ---
SURGEON: Remberto Fontenot M.D. DATE OF PROCEDURE: 04/26/2021 OPERATION PERFORMED: Laparoscopic appendectomy. PRIMARY SURGEON: Remberto Fontenot M.D. SANITARIAN INSPECTOR: Ux Designer: DOROTEO Briscoe student. ANESTHESIA: General endotracheal. ASA CLASSIFICATION: IIE. PREOPERATIVE DIAGNOSIS: Acute abdomen. POSTOPERATIVE DIAGNOSIS: Acute suppurative nonruptured appendicitis. ESTIMATED BLOOD LOSS: 20 mL. INTRAOPERATIVE FLUID REPLACEMENT: 800 mL of crystalloid. DESCRIPTION OF PROCEDURE: The patient was taken to the operating room and placed on the operating table in the supine position. Thigh-high TEDs and sequential compression boots were placed. Time-out was called for appropriate identification of the patient and procedure. Following satisfactory attainment of general endotracheal anesthesia, a Farris catheter was placed in the patient's urinary bladder. The abdomen was prepped with DuraPrep solution. Sterile drapes were applied. The skin above the umbilicus was infiltrated with 0.5% Marcaine solution. Skin incision was made and deepened through the subcutaneous tissue obtaining hemostasis with the use of electrocautery. The Veress needle was introduced into the peritoneal cavity. Saline drop test was positive. Carbon dioxide pneumoperitoneum was established with the release set at 13 cm of water. Once a satisfactory pneumoperitoneum was established, a 5 mm camera and port were placed through the supraumbilical incision. Under camera vision, 12 mm suprapubic and 5 mm left lower quadrant ports were placed. Each incision was preemptively infiltrated with 0.5% Marcaine solution. The appendix was identified and was acutely inflamed. The mesoappendix was taken down with the use of the Harmonic scalpel. The base of the appendix was then ligated using the TYESHA laparoscopic stapler with medium thickness load. The appendix was promptly placed in an EndoCatch bag. The right lower quadrant was then irrigated with 1% Ancef solution and all fluid was aspirated. The appendiceal stump closure appeared secure. The EndoCatch containing appendix was removed through the suprapubic incision under direct vision. Under camera vision, the 5 mm left lower quadrant port was removed and finally the supraumbilical camera and port were removed. Wounds were inspected for hemostasis and small bleeding sites were electrocoagulated. The suprapubic and supraumbilical incisions were closed in two layers approximating the subcutaneous tissue with 3-0 Vicryl and the skin with subcuticular 4-0 Monocryl. The left lower quadrant incision was closed with subcuticular 4-0 Monocryl. All incisions were Steri-Stripped and dressed with sterile Tegaderm pads. Sponge, needle, and instrument counts were all correct. Farris catheter was removed prior to emergence from anesthesia. Following emergence from anesthesia and extubation, the patient was taken to recovery room in stable condition. AYLA / KATHY /[id number]
[2021-04-26] MEDS ORDERED: Piperacillin/Tazobactam 3.375 GM in Sodium Chloride 0.9% 50 ML IV ONE (15:00)
[2021-04-26 18:00] VITALS: BP 148/90; PULSE 73
== END 2021-04-26 18:05 | disposition home or self-care (01) ==
LOC: MW.ED 07:07 → MW.SDS 10:02 → MW.MS 12:52
PROVIDERS: ADMIT Surgery; ATTEND Surgery
DX: K35.30 Acute appendicitis with localized peritonitis, without perforation or gangrene (principal); E66.9 Obesity, unspecified; F17.210 Nicotine dependence, cigarettes, uncomplicated; Z01.812 Encounter for preprocedural laboratory examination; Z20.822 Contact with and (suspected) exposure to COVID-19; Z98.890 Other specified postprocedural states; Z68.33 Body mass index [BMI] 33.0-33.9, adult
CPT/HCPCS: 44970; 74177; 80053; 81001; 83690; 85025; 87635; 88304; 96365; 96375; 99285; J0131; J0330; J0690; J1100; J1885; J2250; J2270; J2405; J2543; J2704; J3010; J3490; J7030; J7120; 00840; U0002